=== PATIENT | female | born 1985 | race Caucasian/White ===

== ENCOUNTER 2018-03-21 15:15 | Inpatient (IN) | payer BC ==
[2018-03-21] MEDS: DEXTROSE 5%-LACTATED RINGERS 1,000 ML IV SCH (15:45)
[2018-03-21] MEDS ORDERED: AMPICILLIN - 2 GM in SODIUM CHLORIDE 100 ML IVPB ONE (16:00)
[2018-03-21] MEDS ORDERED: AMPICILLIN SODIUM 2 GM VIAL ONE (16:02)
[2018-03-21 16:13] VITALS: BMI 35.6
[2018-03-21] MEDS ORDERED: TUBERCULIN PPD 5 TU/0.1ML SYRINGE (IN PATIENT USE ONLY) ID ONE (17:00)
[2018-03-21 17:48] LABS: BASO % 0.4 % (0-2.0); EOS % 2.8 % (0-4.5); HEMATOCRIT 38.2 % (32.4-45.2); HEMOGLOBIN 13.3 GM/dL (10.7-15.3); LYMPH % 15.2 % (8-40); MCH 32.1 pg (25.7-33.7); MCHC 34.8 g/dl (32.0-36.0); MEAN CELL VOLUME 92.1 fl (80-96); MEAN PLT VOLUME 10.4 fl (7.5-11.1); MONO % 6.7 % (3.8-10.2); NEUT % 74.9 % (42.8-82.8); PLATELET COUNT 199 K/MM3 (134-434); RBC 4.15 M/mm3 (3.60-5.2); RDW 13.1 % (11.6-15.6); WHITE BLOOD COUNT 10.9 K/mm3 (4.0-10.0)
[2018-03-21 18:01] LABS: ANION GAP 7 (8-16); BLOOD UREA NITROGEN 10 mg/dL (7-18); CALCIUM 8.3 mg/dL (8.5-10.1); CHLORIDE 107 mmol/L (98-107); CO2 24 mmol/L (21-32); CREATININE 0.6 mg/dL (0.55-1.02); GLUCOSE,RANDOM 93 mg/dL (74-106); POTASSIUM 3.7 mmol/L (3.5-5.1); SODIUM 138 mmol/L (136-145)
[2018-03-21 18:30] LABS: INR 0.95 (0.82-1.09); PROTHROMBIN TIME (PATIENT) 10.7 SEC (9.7-13.0)
[2018-03-21 18:33] LABS: ACTIVATED PTT 28.6 SECONDS (26.9-34.4)
[2018-03-21] MEDS: AMPICILLIN - 1 GM in SODIUM CHLORIDE 100 ML IVPB SCH (20:00)
[2018-03-21] MEDS ORDERED: AMPICILLIN SODIUM 1 GM VIAL ONE (20:09)
--- NOTE | 2018-03-21 20:27 | HP ---
Past Medical History - Primary Care Physician PCP:: Sergio Torres - Admission Chief Complaint: 32yo P0 with at EGA 39w6d admitted with PROM since 3: 30pm History of Present Illness: Pt transferred PNC from [facility]. 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: Alzheimer's, CVA, Dementia, Migraine, Multiple Sclerosis, Peripheral Neuropathy, Parkinson's, Seizure, Syncope, TIA, Vertigo, Other Cardiovascular: No: AFIB, Aneurysm, Aortic Insufficiency, Aortic Stenosis, CAD, CHF, Deep Vein Thrombosis, HTN, Hyperlipdemia, ME, Mitral Insufficiency, Mitral Stenosis, Murmur, Pulmonary Hypertension, Other Pulmonary: No: Asthma, Bronchitis, Cancer, COPD, O2 Dependent, Pneumonia, Previously Intubated, Pulmonary Embolus, Pulmonary Fibrosis, Sleep Apnea, Other Gastrointestinal: No: Ascites, Cancer, Constipation, Crohn's Disease, Diverticulitis, Diverticulosis, Esophageal Varices, Gastritis, GERD, GI Bleed, Hemorrhoids, Hiatal Hernia, Inflamatory Bowel Disease, Irritable Bowel Disease, Pancreatitis, Peptic Ulcer Disease, Ulcerative Colitis, Other Hepatobiliary: No: Cirrhosis, Cholelithiasis, Cholecystitis, Choledocholithiasis , Hepatitis A, Hepatitis B, Hepatitis C, Other Renal/: No: Renal Failure, Renal Inusuff, BPH, Cancer, Hematuria, Hemodialysis , Neurogenic Bladder, Renal Calculi, UTI, Other Reproductive: No: Ectopic , Endometriosis, Fibroids, PID, Polycystic Ovary Syndrome, Postmenopausal, Other ...: 3 ...Para: 0 ...Term: 0 ...: 0 ...Spon : 0 ...Induced : 2 ...Multiple Gestation: 0 ...LMP: 06/02/17 ... Weeks Gestation by Dates: 41.5 ...EDC by Dates: 03/09/18 ...EDC by Sono: 03/22/18 Heme/Onc: No: Anemia, B12 Deficiency, Bleeding Disorder, Cancer, Current Chemotherapy, Current Radiation Therapy, Hemochromatosis, Hypercoaguable State, Myeloproliferative Synd, Sickle Cell Disease, Sickle Cell Trait, Thrombocytopenia, Other Infectious Disease: No: AIDS, C-Diff, Herpes Zoster, HIV, MRSA, STD's, Tuberculosis, VREF, Other Psych: No: Addictions, Anxiety, Bipolar, Depression, Panic, Psychosis, Schizophrenia, Other Musculoskeletal: No: Bursitis, Chronic low back pain, Hemiparesis, Hemiplegia, Osteoarthritis, Paraplegia, Other Rheumatology: No: Fibromyalgia, Gout, Lupus, Rheumatoid Arthritis, Sarcoidosis, Vasculitis, Other ENT: No: Allergic Rhinitis, Sinusitis, Other Endocrine: Yes: Hypothyroidism Dermatology: No: Basal Cell, Cellulitis, Eczema, Melanoma, Psoriasis, Squamous Cell, Other - Past Surgical History Past Surgical History: Yes: Appendectomy Hx Myomectomy: No Hx Transabdominal Cerclage: No Additional Surgical History: Right foot surgery - Smoking History Smoking history: Never smoked Have you smoked in the past 12 months: No Aproximately how many cigarettes per day: 2 - Alcohol/Substance Use Hx Alcohol Use: No History of Substance Use: reports: None - Social History Usual Living Arrangement: Yes: With Spouse ADL: Independent History of Recent Travel: No Home Medications - Allergies Allergies/Adverse Reactions: Allergies Allergy/AdvReac Type Severity Reaction Status Date / Time No Known Allergies Allergy Verified 03/21/18 15:58 - Home Medications Home Medications: Ambulatory Orders Levothyroxine [Synthroid -] 75 mcg PO DAILY 06/02/15 Vit No.130/Iron/Folic [ Vitamins] 1 each PO DAILY 03/21/18 Family Disease History - Family Disease History Family History: Unremarkable Review of Systems - Review of Systems Constitutional: reports: No Symptoms Eyes: reports: No Symptoms HENT: reports: No Symptoms Neck: reports: No Symptoms Cardiovascular: reports: No Symptoms Respiratory: reports: No Symptoms Gastrointestinal: reports: No Symptoms Genitourinary: reports: No Symptoms, Other (Leaking clear amniotic fluid) Breasts: reports: No Symptoms Reported Musculoskeletal: reports: No Symptoms Integumentary: reports: No Symptoms Neurological: reports: No Symptoms Endocrine: reports: No Symptoms Hematology/Lymphatic: reports: No Symptoms Psychiatric: reports: No Symptoms Pain Intensity: 0 Physical Exam - Maternity Vital Signs: Vital Signs Temperature 98.8 F 03/21/18 20:00 Pulse Rate 92 H 03/21/18 20:00 Respiratory Rate 03/21/18 20:00 Blood Pressure 127/82 03/21/18 20:00 O2 Sat by Pulse Oximetry (%) Constitutional: Yes: Well Nourished, No Distress, Calm Eyes: Yes: WNL, Conjunctiva Clear HENT: Yes: WNL, Atraumatic, Normocephalic Neck: Yes: WNL, Supple, Trachea Midline Cardiovascular: Yes: WNL, Regular Rate and Rhythm Lungs: Clear to auscultation, Normal air movement Breast(s): Yes: WNL - Abdominal Exam/OB Fundal Height: 41 Number of Fetuses: Single Presentation: Vertex Contractions: No Intensity: Unaware Heart Rate (range): 145 Heart Rate Location: Midline Category: I Accelerations: Uniform Decelerations: None - Vaginal Exam/OB Vaginal Bleediing: No Speculum Exam: No Dilatation (cm): 0.5 Effacement (%): 60 Amniotic Membrane Status: Leaking (clear) Nitrazine Test: Positive Amniotic Fluid: Yes: Clear Station: -3 (Adequate Gynecoid pelvimetry, EFW ~3600g by Derik's maneuvers) - Physical Exam Musculoskeletal: Yes: WNL Extremities: Yes: WNL Edema: Yes Edema: LLE: Trace, RLE: Trace Integumentary: Yes: WNL ...Motor Strength: WNL Psychiatric: Yes: WNL, Alert, Oriented - Labs Lab Results: CBC, BMP 03/21/18 16:30 03/21/18 16:30 Hemorrhage Risk Assessment - Risk Factors Medium Risk Factors: Yes: None High Risk Factors: Yes: None Risk Score: 1 Risk Level: Medium Risk Imaging - Results Ultrasound: Report Reviewed Assessment/Plan 32yo P0 with at EGA 39w6d admitted with PROM. Fetus with Category I tracing and requires no intervention. Pt with adequate gynecoid pelvimetry on exam. We had a long discussion re: risks, benefits, alternatives of labor indxn. Risks, benefits, alternatives of labor induction vs. expectant managemant were reviewed. Patient was explained that the induction of labor has risks, including but not limited to uterine tachysystole, distress, uterine atony, emergency section, bleeding, injury or even . Patient prefers to proceed with induction of labor. We discussed the medications that may be used including but not limited to Cervidil and/or pitocin. I explained the risks and benefits of meds. The fetus is with Category I tracing and does not require intervention. The patient has adequate pelvimetry. Plan to proceed with cervical ripening using Cervidil, followed by pitocin, as needed.
[2018-03-21] MEDS ORDERED: DINOPROSTONE 10 MG VAGINAL SUPPOSITORY VG ONE (20:30)
[2018-03-22] MEDS: AMPICILLIN - 1 GM in SODIUM CHLORIDE 100 ML IVPB SCH ×6 (04:00→20:00)
[2018-03-22] MEDS ORDERED: AMPICILLIN SODIUM 1 GM VIAL ONE ×5 (04:02→23:50)
[2018-03-22] MEDS ORDERED: BUTORPHANOL TARTRATE 1 MG/ML VIAL ONE ×4 (04:56→13:46)
[2018-03-22] MEDS ORDERED: PROMETHAZINE HCL 25 MG/1 ML VIAL ONE ×2 (04:56→13:46)
[2018-03-22] MEDS ORDERED: PROMETHAZINE HCL 25 MG/1 ML VIAL IVPB ONE ×2 (05:00→13:45)
[2018-03-22] MEDS ORDERED: BUTORPHANOL TARTRATE 1 MG/ML VIAL IVPB ONE ×2 (05:00→13:45)
[2018-03-22] MEDS: LEVOTHYROXINE NA 75 MCG TABLET (FP) PO SCH (07:50)
[2018-03-22] MEDS ORDERED: AMPICILLIN - 1 GM in SODIUM CHLORIDE 100 ML IVPB SCH (09:00)
--- NOTE | 2018-03-22 09:09 | PN ---
Ante-Partal Exam - Subjective Subjective: No complaints, s/p Cervidil removed. No pain/ctx Vital Signs: Vital Signs Temperature 98.6 F 03/22/18 08:00 Pulse Rate 76 03/22/18 08:00 Respiratory Rate 20 03/22/18 08:00 Blood Pressure 123/64 03/22/18 08:00 O2 Sat by Pulse Oximetry (%) Bleeding: No Headache: No Visual changes: No Right upper quadrant pain: No Pain (scale 1-10): 0 - Contractions Contractions: Yes Regularity: Irritability Intensity: Unaware Monitor Mode: External - Exam during Labor Heart Rate: 140 Variability: Moderate Heart Rate Location: Midline Category: I Monitor Accelerations: Present Monitor Decelerations: None Exam: Vaginal Dilatation (cm): 1 Effacement (%): 90 Amniotic Membrane Status: Leaking Amniotic Fluid: Clear Presentation: Vertex Station: -1 - Intrapartum Hemorrhage Risk Medium Risk Factors: None High Risk Factors: None Risk Score: 0 Risk Level: Low Risk - Assessment/Plan Assessment/Plan: 32yo P0 with PROM undergoing labor induction. Pt is afebrile and stable. She is not in labor. Fetus with Category I tracing. The pt wants to take a shower now and then proceed with induction. We discussed the risks and benefits of pitocin. Plan to start pitocin once the pt is ready.
[2018-03-22] MEDS ORDERED: OXYTOCIN 30 UNITS in 0.9% NS 30 UNIT/500 ML INFUS.BAG IVPB ONE (09:18)
[2018-03-22] MEDS: DEXTROSE 5%-LACTATED RINGERS 1,000 ML IV SCH (09:20)
[2018-03-22] MEDS ORDERED: OXYTOCIN 30 UNITS in 0.9% NS 30 UNIT/500 ML INFUS.BAG IVPB SCH (11:00)
[2018-03-22] MEDS ORDERED: FENTANYL/BUPIVACAINE/NS/PF - PCEA - 50 ML DISP.SYRIN EP ONE ×2 (17:49→22:49)
[2018-03-22] MEDS ORDERED: CITRIC ACID/SODIUM CITRATE 30 ML UNIT-DOSE CUP PO ONE (18:00)
[2018-03-22] MEDS ORDERED: ELECTROLYTE-148 SOLN 500 ML IV ONE (18:00)
--- NOTE | 2018-03-22 18:07 | PN ---
Ante-Partal Exam - Subjective Subjective: Pt requested epidural Vital Signs: Vital Signs Temperature 97.8 F 03/22/18 17:00 Pulse Rate 79 03/22/18 17:00 Respiratory Rate 20 03/22/18 17:00 Blood Pressure 128/86 03/22/18 17:00 O2 Sat by Pulse Oximetry (%) Bleeding: No Headache: No Visual changes: No Right upper quadrant pain: No Pain (scale 1-10): 8 - Contractions Contractions: Yes Regularity: Irregular Intensity: Mod/Strong Monitor Mode: External - Exam during Labor Heart Rate: 140 Variability: Moderate Heart Rate Location: Midline Category: I Monitor Accelerations: Present Monitor Decelerations: None Exam: Vaginal Dilatation (cm): 1 Effacement (%): 90 Amniotic Membrane Status: Leaking Meconium Staining: Light Presentation: Vertex Station: -1 - Intrapartum Hemorrhage Risk Medium Risk Factors: None High Risk Factors: None Risk Score: 0 Risk Level: Low Risk - Assessment/Plan Assessment/Plan: 32yo P0 with at 40wk and PROM undergoing labor indx. PROM- over 24hrs, on IV abx. No evidence of chorio Fetus with Category I tracing and requires n intervention Labor in latent phase, w/o significant progress. We discussed the options of continue labor vs C/S. R/b/a of labor explained, including infection, labor dystocia, shoulder dystocia, uterine atonym infection, etc. We also discussed surgical risks of C/S, post op recovery, and reproductive risks. The pt prefers to continue labor and re-evaluate after epidural.
[2018-03-22] MEDS ORDERED: NALOXONE HCL 0.4 MG/ML VIAL IVPUSH PRN (18:10)
[2018-03-22] MEDS: ELECTROLYTE-148 SOLN 1,000 ML IV SCH ×2 (18:10→21:30)
[2018-03-22] MEDS ORDERED: FENTANYL/BUPIVACAINE/NS/PF - PCEA - 50 ML DISP.SYRIN EP SCH (18:15)
--- NOTE | 2018-03-22 23:20 | PN ---
Ante-Partal Exam - Subjective Subjective: reports increased pressure, otherwise no complaints Vital Signs: Vital Signs Temperature 99.4 F 03/22/18 22:00 Pulse Rate 83 03/22/18 23:00 Respiratory Rate 18 03/22/18 23:00 Blood Pressure 124/67 03/22/18 23:00 O2 Sat by Pulse Oximetry (%) 97 03/22/18 23:00 Bleeding: No Headache: No Visual changes: No Right upper quadrant pain: No - Contractions Contractions: Yes Regularity: Regular Monitor Mode: External - Exam during Labor Heart Rate: 155 Variability: Moderate Category: I Monitor Accelerations: Absent Monitor Decelerations: None Exam: Vaginal Dilatation (cm): 2 Effacement (%): 100 Amniotic Membrane Status: Ruptured Station: 0 - Intrapartum Hemorrhage Risk Medium Risk Factors: None High Risk Factors: None Risk Score: 0 Risk Level: Low Risk - Assessment/Plan Assessment/Plan: 32 yo PROM, induction of labor 1. cervical change noted, will continue pitocin 2. ampicillin for GBS prophylaxis, recent temperature 99F; will continue to monitor for sx of chorioamnionitis 3. pain well controlled with epidural 4. will proceed with expectant management
[2018-03-23] MEDS: AMPICILLIN - 1 GM in SODIUM CHLORIDE 100 ML IVPB SCH
[2018-03-23] MEDS ORDERED: OXYTOCIN 20 UNITS in 0.9% NS 20 UNIT/1,000 ML INFUS.BAG IV ONE (02:20)
[2018-03-23] MEDS ORDERED: LIDOCAINE HCL 1% PRESERVATIVE FREE - 30ML VIAL ONE (02:20)
[2018-03-23] MEDS ORDERED: BISACODYL 10 MG SUPP.RECT RC PRN (03:22)
[2018-03-23] MEDS ORDERED: BENZOCAINE 28 GM HEMORRHOIDAL OINTMENT TP PRN (03:22)
[2018-03-23] MEDS ORDERED: BENZOCAINE 20% 57 GM BOTTLE TP PRN (03:22)
[2018-03-23] MEDS ORDERED: oxyCODONE HCL 5 MG TABLET PO PRN (03:22)
[2018-03-23] MEDS ORDERED: METHYLERGONOVINE MALEATE 0.2 MG/1 ML AMP IM PRN (03:22)
[2018-03-23] MEDS ORDERED: WITCH HAZEL 50% (TUCKS) 40 PAD/JAR PAD TP PRN (03:22)
--- NOTE | 2018-03-23 03:22 | PN ---
Delivery - Delivery Vaginal Delivery: No Problems Type of Anesthesia: Epidural Episiotomy/Laceration: Midline, 2nd degree EBL (cc): 300 Delivery, Single - Stages of Labor Date 1st Stage Initiatied: 03/22/18 Time 1st Stage Initiated: 23:10 Date 2nd Stage Initiated: 03/23/18 Time 2nd Stage Initiated: 02:25 Date of Delivery: 03/23/18 Time of Delivery: 02:53 Date Placenta Delivered: 03/23/18 Time Placenta Delivered: 03:12 - Condition of Image Consultant/Chemical Plant Operator Supervisor Present: Yes Infant Gender: Female Position: Left, OA Total Hours ROM (Hrs/Mins): 36 hr 12 min - 1 Minute Total Score: 6 5 Minutes Total Score: 9 - [place] Feeding Plan Initial Plan: Elected not to breastfeed exclusively throughout hospitalization Remarks - Remarks Remarks: Patient progressed to fully dilated and at 0253 via delivered a viable female infant in DONA position, APGARs 6,9. Weight and length unknown at this time. Head delivered spontaneously followed by shoulders and body without difficulty. Thick meconium noted, nose and mouth was bulb suctioned. Cord was clamped and cut and handed to waiting nursing staff Perineum and vagina examined, a second degree laceration was noted and repaired in the usual fashion. Rectal exam revealed no sutures in rectum. Placenta was delivered spontaneously and intact. 20 units of pitocin in 1 L IVF was given. All counts correct x 2. Mother and infant stable in LDR. EBL 300cc.
[2018-03-23] MEDS ORDERED: OXYTOCIN 20 UNITS in 0.9% NS 20 UNIT/1,000 ML INFUS.BAG IV SCH (03:30)
[2018-03-23] MEDS ORDERED: BUPIVACAINE HCL/PF 0.25% (2.5MG/ML) 10 ML VIAL ONE (03:36)
[2018-03-23 03:38] LABS: ARTERIAL BLD GAS O2 SATURATION 41.6 % (90-98.9); ARTERIAL BLOOD GAS BASE EXCESS -7.2 meq/l (-2-2); ARTERIAL BLOOD GAS PO2 24.6 mmHg (80-100); ARTERIAL BLOOD GAS pH 7.26 (7.35-7.45)
[2018-03-23 03:39] LABS: VENOUS PC02 47.8 mmHg (38-52); VENOUS PH 7.26 (7.32-7.42); VENOUS PO2 23.2 mmHg (28-48)
[2018-03-23] MEDS ORDERED: AMPICILLIN - 1 GM in SODIUM CHLORIDE 100 ML IVPB SCH (04:00)
[2018-03-23] MEDS: ACETAMINOPHEN 325 MG TABLET (FP) PO PRN ×4 (05:29→20:59)
[2018-03-23] MEDS: LEVOTHYROXINE NA 75 MCG TABLET (FP) PO SCH (06:29)
[2018-03-23] MEDS: PRENATAL VITAMINS W/ FOLIC ACID TABLET (FP) PO SCH (10:19)
[2018-03-23] MEDS: SIMETHICONE 80 MG TAB.CHEW (FP) PO PRN ×2 (16:39→20:59)
[2018-03-23] MEDS: ELECTROLYTE-148 SOLN 1,000 ML IV SCH (19:00)
[2018-03-24] MEDS: IBUPROFEN 600 MG TABLET (FP) PO PRN ×3 (00:27→20:14)
[2018-03-24] MEDS: ACETAMINOPHEN 325 MG TABLET (FP) PO PRN ×3 (00:28→20:13)
[2018-03-24] MEDS: LEVOTHYROXINE NA 75 MCG TABLET (FP) PO SCH (06:06)
[2018-03-24 07:46] LABS: BASO % 0.3 % (0-2.0); EOS % 3.6 % (0-4.5); HEMATOCRIT 35.2 % (32.4-45.2); HEMOGLOBIN 11.9 GM/dL (10.7-15.3); LYMPH % 17.9 % (8-40); MCH 31.5 pg (25.7-33.7); MCHC 33.7 g/dl (32.0-36.0); MEAN CELL VOLUME 93.5 fl (80-96); MEAN PLT VOLUME 9.9 fl (7.5-11.1); MONO % 6.7 % (3.8-10.2); NEUT % 71.5 % (42.8-82.8); PLATELET COUNT 186 K/MM3 (134-434); RBC 3.77 M/mm3 (3.60-5.2); RDW 13.4 % (11.6-15.6); WHITE BLOOD COUNT 12.9 K/mm3 (4.0-10.0)
--- NOTE | 2018-03-24 08:27 | PN ---
Post Progress Note - Subjective Subjective: No complains, voiding, ambulating, + BM, eating, attempting to breastfeed Post Day: 1 Type of Delivery: Vital Signs: Vital Signs Temperature 97.8 F 03/24/18 01:28 Pulse Rate 59 L 03/24/18 01:28 Respiratory Rate 19 03/24/18 01:28 Blood Pressure 136/78 03/24/18 01:28 O2 Sat by Pulse Oximetry (%) 97 03/23/18 04:30 Breast Exam: Yes: Soft Uterus: Yes: Fundus Firm Abdomen/GI: Yes: Abdomen soft Lochia: Yes: Rubra Lochia, amount: Small Extremities: Yes: Calves non-tender Perineum: Yes: Laceration Activity: Ambulating - Labs Labs: CBC WBC 12.9 K/mm3 (4.0-10.0) H 03/24/18 07:15 RBC 3.77 M/mm3 (3.60-5.2) 03/24/18 07:15 Hgb 11.9 GM/dL (10.7-15.3) D 03/24/18 07:15 Hct 35.2 % (32.4-45.2) 03/24/18 07:15 MCV 93.5 fl (80-96) 03/24/18 07:15 MCH 31.5 pg (25.7-33.7) 03/24/18 07:15 MCHC 33.7 g/dl (32.0-36.0) 03/24/18 07:15 RDW 13.4 % (11.6-15.6) 03/24/18 07:15 Plt Count 186 K/MM3 (134-434) 03/24/18 07:15 MPV 9.9 fl (7.5-11.1) 03/24/18 07:15 Neutrophils % 71.5 % (42.8-82.8) 03/24/18 07:15 Lymphocytes % 17.9 % (8-40) 03/24/18 07:15 Monocytes % 6.7 % (3.8-10.2) 03/24/18 07:15 Eosinophils % 3.6 % (0-4.5) 03/24/18 07:15 Basophils % 0.3 % (0-2.0) 03/24/18 07:15 Assessment/Plan 32yo P0 s/p VSS, Afebrile Doing well Rh positive, no need for RhoGam Female infant, doing well cont. routine care Plan d/c 03/25/18
--- NOTE | 2018-03-24 09:04 | DS ---
Physical Exam-DESIGNER ARCHITECT Vital Signs: Vital Signs Temperature 97.8 F 03/24/18 01:28 Pulse Rate 59 L 03/24/18 01:28 Respiratory Rate 19 03/24/18 01:28 Blood Pressure 136/78 03/24/18 01:28 O2 Sat by Pulse Oximetry (%) 97 03/23/18 04:30 Constitutional: Yes: Well Nourished Eyes: Yes: WNL HENT: Yes: WNL, Atraumatic, Normocephalic Neck: Yes: WNL, Supple, Trachea Midline Cardiovascular: Yes: WNL, Regular Rate and Rhythm Respiratory: Yes: WNL, Regular, CTA Bilaterally Gastrointestinal: Yes: WNL, Normal Bowel Sounds, Soft Renal/: Yes: WNL Pelvis: Yes: WNL External Genitalia: Yes: Normal Vaginal Exam: Yes: Normal Cervix: Yes: Normal Uterus: Yes: Normal ....Post : Yes: Uterus firm, Uterus non-tender Breast(s): Yes: WNL Musculoskeletal: Yes: WNL Extremities: Yes: WNL Edema: No Integumentary: Yes: WNL Neurological: Yes: WNL, Alert, Oriented ...Motor Strength: WNL Psychiatric: Yes: WNL, Alert, Oriented Labs: CBC, BMP 03/24/18 07:15 03/21/18 16:30 Delivery - Delivery Vaginal Delivery: No Problems Type of Anesthesia: Epidural Episiotomy/Laceration: Midline, 2nd degree EBL (cc): 300 Delivery, Single - Stages of Labor Date 1st Stage Initiatied: 03/22/18 Time 1st Stage Initiated: 23:10 Date 2nd Stage Initiated: 03/23/18 Time 2nd Stage Initiated: 02:25 Date of Delivery: 03/23/18 Time of Delivery: 02:53 Time Placenta Delivered: 03:12 - Condition of Hospital Technician/Linseed Cake Trimmer Present: Yes Name: Julita Moran Gender: Female Weight: 6 lb 14 oz Position: Left, OA Total Hours ROM (Hrs/Mins): 36 hr 12 min - 1 Minute Total Score: 6 5 Minutes Total Score: 9 - [place] Feeding Plan Initial Plan: Elected not to breastfeed exclusively throughout hospitalization Discharge Summary Reason For Visit: LABOR Procedures: Principal: Normal vaginal delivery Hospital Course: Unremarkable Condition: Good - Instructions Diet, Activity, Other Instructions: Physical activity Resume your normal everyday activity as tolerated no heavy lifting or exercise until seen by your surgeon. You may walk unlimited bill of and climb stairs. You may resume driving the car when you feel safe and comfortable behind the wheel. No sexual activity as instructed. Wound care If you have a bandage, leave it on, and keep dry for 48-72 hours. After that time discard the outer bandage. If they are tapes on the skin under the out of bandage leave them in place. They will peel off in the next 7 to 10 days. Do Not Peel them off. You may shower the day after surgery. If there are tapes present on the skin, you may shower over them. Diet There are no dietary restrictions. Eat healthy, high-fiber foods. Drink 6 to 8 glasses of liquid each day. This will assist in keeping your bowels are regular. Pain management You may take Tylenol or acetaminophen or Ibuprofen (for example, Motrin, Advil etc.) from my pain prescription medication is ordered should be taken as prescribed for moderate to severe pain. Call MD for any of the following: Severe pain not relieved by medication Fever of 101 or higher Excessive bleeding or drainage on dressing Inability to urinate Referrals: Sergio Torres MD [Staff Physician] - Disposition: HOME - Home Medications Comprehensive Discharge Medication List: Ambulatory Orders Levothyroxine [Synthroid -] 75 mcg PO DAILY 06/02/15 Vit No.130/Iron/Folic [ Vitamins] 1 each PO DAILY 03/21/18
[2018-03-24] MEDS: PRENATAL VITAMINS W/ FOLIC ACID TABLET (FP) PO SCH (09:39)
[2018-03-24] MEDS: LORATADINE 10 MG TABLET PO SCH (09:39)
[2018-03-24] MEDS ORDERED: SENNOSIDES/DOCUSATE COMBO (SENNA PLUS) TABLET (UD) PO PRN (22:00)
[2018-03-25] MEDS: ACETAMINOPHEN 325 MG TABLET (FP) PO PRN (02:16)
[2018-03-25] MEDS: IBUPROFEN 600 MG TABLET (FP) PO PRN (02:16)
[2018-03-25] MEDS: LEVOTHYROXINE NA 75 MCG TABLET (FP) PO SCH (06:26)
--- NOTE | 2018-03-25 06:50 | PN ---
Post Progress Note - Subjective Subjective: No complains Post Day: 2 Type of Delivery: Vital Signs: Vital Signs Temperature 97.8 F 03/24/18 22:00 Pulse Rate 74 03/24/18 22:00 Respiratory Rate 20 03/24/18 22:00 Blood Pressure 131/79 03/24/18 22:00 O2 Sat by Pulse Oximetry (%) 97 03/23/18 04:30 Breast Exam: Yes: Soft Uterus: Yes: Fundus Firm Abdomen/GI: Yes: Abdomen soft Lochia: Yes: Rubra Lochia, amount: Small Extremities: Yes: Calves non-tender Perineum: Yes: Laceration Activity: Ambulating - Labs Labs: CBC WBC 12.9 K/mm3 (4.0-10.0) H 03/24/18 07:15 RBC 3.77 M/mm3 (3.60-5.2) 03/24/18 07:15 Hgb 11.9 GM/dL (10.7-15.3) D 03/24/18 07:15 Hct 35.2 % (32.4-45.2) 03/24/18 07:15 MCV 93.5 fl (80-96) 03/24/18 07:15 MCH 31.5 pg (25.7-33.7) 03/24/18 07:15 MCHC 33.7 g/dl (32.0-36.0) 03/24/18 07:15 RDW 13.4 % (11.6-15.6) 03/24/18 07:15 Plt Count 186 K/MM3 (134-434) 03/24/18 07:15 MPV 9.9 fl (7.5-11.1) 03/24/18 07:15 Neutrophils % 71.5 % (42.8-82.8) 03/24/18 07:15 Lymphocytes % 17.9 % (8-40) 03/24/18 07:15 Monocytes % 6.7 % (3.8-10.2) 03/24/18 07:15 Eosinophils % 3.6 % (0-4.5) 03/24/18 07:15 Basophils % 0.3 % (0-2.0) 03/24/18 07:15 Assessment/Plan 32yo P0 s/p VSS, Afebrile Doing well Rh positive, no need for RhoGam Female , doing well D/c home NPV x 6wks RTO 4-6wks
[2018-03-25 08:52] VITALS: BP 132/83; PULSE 82; TEMP 97.4
[2018-03-25] MEDS: LORATADINE 10 MG TABLET PO SCH (09:45)
[2018-03-25] MEDS: PRENATAL VITAMINS W/ FOLIC ACID TABLET (FP) PO SCH (09:45)
== END 2018-03-25 10:15 | disposition home or self-care (01) | DRG 775 ==
LOC: JLDR 15:15 → J3W 03-23 04:45
PROVIDERS: ADMIT Obstetrics & Gynecology; ATTEND Obstetrics & Gynecology
PROC: 3E0P7VZ Introduction of Hormone into Female Reproductive, Via Natural or Artificial Opening (ICD-10-PCS; 2018-03-21)
PROC: 10E0XZZ Delivery of Products of Conception, External Approach (ICD-10-PCS; principal; 2018-03-23)
PROC: 0KQM0ZZ Repair Perineum Muscle, Open Approach (ICD-10-PCS; 2018-03-23)
PROC: 0W8NXZZ Division of Female Perineum, External Approach (ICD-10-PCS; 2018-03-23)
DX: O70.1 Second degree perineal laceration during delivery (principal); Z37.0 Single live birth; O42.90 Premature rupture of membranes, unspecified as to length of time between rupture and onset of labor, unspecified weeks of gestation; Z3A.39 39 weeks gestation of pregnancy; Z22.330 Carrier of Group B streptococcus
CPT/HCPCS: 36415; 36600; 59409; 80048; 82803; 85025; 85610; 85730; 86593; 86850; 86900; 86901

== ENCOUNTER 2021-11-11 14:12 | Inpatient (IN) | payer BC ==
[2021-11-11] MEDS ORDERED: ACETAMINOPHEN 1000 MG/100 ML VIAL IVPB ONE (14:35)
[2021-11-11] MEDS ORDERED: SODIUM CHLORIDE 1,000 ML IV STA (14:35)
[2021-11-11] MEDS ORDERED: ONDANSETRON 4 MG/2 ML VIAL IVPUSH ONE (14:35)
[2021-11-11] MEDS ORDERED: FAMOTIDINE 20 MG/50 ML IVPB 20 MG/50 ML MG IVPB ONE ×2 (14:35→14:53)
[2021-11-11] MEDS ORDERED: MAG HYDROX/AL HYDROX/SIMETH 30 ML UNIT-DOSE CUP PO ONE (14:36)
[2021-11-11] MEDS ORDERED: ACETAMINOPHEN INJECTION 100 ML IVPB ONE (14:54)
[2021-11-11] MEDS ORDERED: MAG HYDROX/AL HYDROX/SIMETH 30 ML UNIT-DOSE CUP ONE (14:54)
[2021-11-11] MEDS ORDERED: ONDANSETRON 4 MG/2 ML VIAL ONE (14:54)
[2021-11-11 15:17] LABS: BILIRUBIN,TOTAL 1.5 mg/dl (0.2-1); CALCIUM 8.9 mg/dl (8.5-10); CREATININE 0.9 mg/dl (0.55-1.3); TOT PROT 6.8 g/dl (6.4-8.2)
[2021-11-11 15:18] LABS: EPITHELIAL CELLS MODERATE /hpf
[2021-11-11 16:21] LABS: BASO % 0.2 % (0-2.0); EOS % 1.6 % (0-4.5); HEMATOCRIT 39.2 % (32.4-45.2); HEMOGLOBIN 13.5 GM/dL (10.7-15.3); MCH 31.7 pg (25.7-33.7); MCHC 34.3 g/dl (32.0-36.0); MEAN CELL VOLUME 92.5 fl (80-96); MEAN PLT VOLUME 8.5 fl (7.5-11.1); MONO % 7.8 % (3.8-10.2); NEUT % 82.4 % (42.8-82.8); PLATELET COUNT 220 10^3/uL (134-434); RBC 4.24 M/mm3 (3.60-5.2); RDW 13.1 % (11.6-15.6); WHITE BLOOD COUNT 10.2 K/mm3 (4.0-10.0)
[2021-11-11] MEDS ORDERED: morphine CARPU-JECT 4 MG/1 ML DISP.SYRIN IVPUSH ONE (17:49)
[2021-11-11] MEDS ORDERED: morphine SULFATE 4 MG/ML VIAL ONE (17:56)
[2021-11-11] MEDS ORDERED: ONDANSETRON 4 MG/2 ML VIAL IVPUSH PRN (18:12)
[2021-11-11] MEDS ORDERED: LACTATED RINGERS SOLUTION 1,000 ML/1,000 ML INFUS.BAG IV SCH (18:15)
[2021-11-12] MEDS ORDERED: DEXTROSE 5%-0.45% SALINE 1,000 ML IV SCH (01:45)
[2021-11-12] MEDS ORDERED: morphine SULFATE 4 MG/ML VIAL ONE (03:44)
[2021-11-12 06:13] VITALS: BMI 23.6
[2021-11-12] MEDS ORDERED: PIPERACILLIN/TAZOB 3.375 GM 3.375 GM in DEXTROSE 5%-WATER - 50 ML IVPB SCH ×2 (09:00→10:00)
[2021-11-12] MEDS ORDERED: PIPERACILLIN/TAZOBACTAM 3.375 GM VIAL IVPB ONE ×2 (09:37→17:04)
[2021-11-12] MEDS ORDERED: DEXTROSE 5%-WATER - 50 ML IVPB ONE ×2 (09:38→17:05)
[2021-11-12] MEDS: DEXTROSE 5%-0.45% SALINE 1,000 ML IV SCH ×2 (09:45→22:13)
[2021-11-12] MEDS: LEVOTHYROXINE NA 75 MCG TABLET (FP) PO SCH ×2 (10:05→17:47)
[2021-11-12 13:10] LABS: BASO % 0.5 % (0-2.0); EOS % 3.8 % (0-4.5); HEMATOCRIT 38.4 % (32.4-45.2); HEMOGLOBIN 13.1 GM/dL (10.7-15.3); LYMPH % 17.2 % (8-40); MCH 31.9 pg (25.7-33.7); MCHC 34.2 g/dl (32.0-36.0); MEAN CELL VOLUME 93.1 fl (80-96); MEAN PLT VOLUME 8.4 fl (7.5-11.1); MONO % 10.9 % (3.8-10.2); NEUT % 67.6 % (42.8-82.8); PLATELET COUNT 207 10^3/uL (134-434); RBC 4.12 M/mm3 (3.60-5.2); RDW 13.3 % (11.6-15.6); WHITE BLOOD COUNT 5.8 K/mm3 (4.0-10.0)
[2021-11-12 13:14] LABS: INR 1.19 (0.83-1.09); PROTHROMBIN TIME (PATIENT) 13.4 SEC (9.7-13.0)
[2021-11-12 13:20] LABS: ALBUMIN 3.3 g/dl (3.4-5.0); CALCIUM 8.5 mg/dL (8.5-10.1); MAGNESIUM 2.3 mg/dL (1.8-2.4)
[2021-11-12 13:21] LABS: BLOOD UREA NITROGEN 7.9 mg/dL (7-18)
[2021-11-12 13:22] LABS: CREATININE 0.8 mg/dL (0.55-1.3)
[2021-11-12 13:23] LABS: BILIRUBIN,DIRECT 0.2 mg/dL (0.0-0.2)
[2021-11-12 13:24] LABS: BILIRUBIN,TOTAL 0.8 mg/dL (0.2-1); TOT PROT 6.6 g/dl (6.4-8.2)
[2021-11-12] MEDS: PIPERACILLIN/TAZOB 3.375 GM 3.375 GM in DEXTROSE 5%-WATER - 50 ML IVPB SCH (17:08)
[2021-11-12] MEDS ORDERED: LORazepam 0.5 MG TABLET PO ONE (17:31)
[2021-11-13] MEDS ORDERED: PIPERACILLIN/TAZOBACTAM 3.375 GM VIAL IVPB ONE ×3 (00:54→17:38)
[2021-11-13] MEDS ORDERED: DEXTROSE 5%-WATER - 50 ML IVPB ONE ×3 (00:55→17:38)
[2021-11-13] MEDS: PIPERACILLIN/TAZOB 3.375 GM 3.375 GM in DEXTROSE 5%-WATER - 50 ML IVPB SCH ×3 (01:15→17:58)
[2021-11-13] MEDS: LEVOTHYROXINE NA 75 MCG TABLET (FP) PO SCH ×2 (06:50→06:54)
[2021-11-13] MEDS: PANTOPRAZOLE SODIUM 40 MG VIAL IVPUSH SCH (09:52)
[2021-11-13] MEDS: DEXTROSE 5%-0.45% SALINE 1,000 ML IV SCH ×3 (09:52→21:09)
[2021-11-13] MEDS ORDERED: LORazepam 0.5 MG TABLET PO ONE ×2 (10:30→19:18)
[2021-11-13 10:37] LABS: BASO % 0.6 % (0-2.0); EOS % 3.7 % (0-4.5); HEMATOCRIT 41.8 % (32.4-45.2); LYMPH % 20.1 % (8-40); MCH 31.4 pg (25.7-33.7); MCHC 33.4 g/dl (32.0-36.0); MEAN CELL VOLUME 93.7 fl (80-96); MEAN PLT VOLUME 9.2 fl (7.5-11.1); MONO % 12.3 % (3.8-10.2); NEUT % 63.3 % (42.8-82.8); PLATELET COUNT 235 10^3/uL (134-434); RBC 4.46 M/mm3 (3.60-5.2)
[2021-11-13 11:02] LABS: ALBUMIN 3.5 g/dl (3.4-5.0); BLOOD UREA NITROGEN 5.7 mg/dL (7-18); CALCIUM 8.9 mg/dL (8.5-10.1)
[2021-11-13 11:05] LABS: CREATININE 0.7 mg/dL (0.55-1.3)
[2021-11-13 11:06] LABS: BILIRUBIN,TOTAL 0.6 mg/dL (0.2-1)
[2021-11-13 11:07] LABS: TOT PROT 6.9 g/dl (6.4-8.2)
[2021-11-14] MEDS ORDERED: IBUPROFEN 800 MG/8 ML IJ IVPB ONE (00:07)
[2021-11-14] MEDS ORDERED: PIPERACILLIN/TAZOBACTAM 3.375 GM VIAL IVPB ONE ×2 (00:53→09:38)
[2021-11-14] MEDS ORDERED: DEXTROSE 5%-WATER - 50 ML IVPB ONE ×2 (00:53→09:39)
[2021-11-14] MEDS: PIPERACILLIN/TAZOB 3.375 GM 3.375 GM in DEXTROSE 5%-WATER - 50 ML IVPB SCH ×2 (02:22→09:52)
[2021-11-14] MEDS: LEVOTHYROXINE NA 75 MCG TABLET (FP) PO SCH (06:26)
[2021-11-14 06:51] VITALS: BP 101/55; PULSE 70; TEMP 97.8
[2021-11-14 08:38] LABS: BASO % 0.7 % (0-2.0); EOS % 3.6 % (0-4.5); HEMATOCRIT 42.1 % (32.4-45.2); HEMOGLOBIN 14.3 GM/dL (10.7-15.3); LYMPH % 24.4 % (8-40); MCH 31.7 pg (25.7-33.7); MCHC 33.9 g/dl (32.0-36.0); MEAN CELL VOLUME 93.4 fl (80-96); MEAN PLT VOLUME 8.4 fl (7.5-11.1); MONO % 10.3 % (3.8-10.2); PLATELET COUNT 229 10^3/uL (134-434); RBC 4.51 M/mm3 (3.60-5.2); RDW 13.1 % (11.6-15.6); WHITE BLOOD COUNT 4.6 K/mm3 (4.0-10.0)
[2021-11-14 09:02] LABS: BLOOD UREA NITROGEN 4.8 mg/dL (7-18); CALCIUM 8.8 mg/dL (8.5-10.1)
[2021-11-14 09:03] LABS: ALBUMIN 3.3 g/dl (3.4-5.0)
[2021-11-14 09:04] LABS: CREATININE 0.8 mg/dL (0.55-1.3)
[2021-11-14 09:06] LABS: BILIRUBIN,DIRECT 0.2 mg/dL (0.0-0.2)
[2021-11-14 09:07] LABS: TOT PROT 6.8 g/dl (6.4-8.2)
[2021-11-14 09:08] LABS: BILIRUBIN,TOTAL 0.6 mg/dL (0.2-1)
[2021-11-14] MEDS: PANTOPRAZOLE SODIUM 40 MG VIAL IVPUSH SCH (09:52)
[2021-11-14] MEDS: DEXTROSE 5%-0.45% SALINE 1,000 ML IV SCH (09:52)
[2021-11-17 01:06] LABS: SARS-CoV-2 NAA Detected (Not Detected)
== END 2021-11-14 14:31 | disposition home or self-care (01) | DRG 444 ==
LOC: FER 14:12 → J8W 11-12 04:44
PROVIDERS: ADMIT Internal Medicine; ATTEND Internal Medicine
DX: K81.0 Acute cholecystitis (principal); U07.1 COVID-19; R74.01 Elevation of levels of liver transaminase levels; E03.9 Hypothyroidism, unspecified; D72.829 Elevated white blood cell count, unspecified
CPT/HCPCS: 36415; 71045-TC-FY; 76705-TC; 80048; 80053; 80076; 81003; 81015; 82150; 82248; 82728; 83615; 83690; 83735; 84703; 85025; 85379; 85610; 86140; 86850; 86900; 86901; 87040; 99285-25; C9803; J0131; U0003; U0005